=== PATIENT | male | born 1970 | race Caucasian/White ===

== ENCOUNTER 2018-05-30 03:44 | Inpatient (IN) ==
[2018-05-30] MEDS ORDERED: Acetaminophen 325 MG Tablet PO PRN (10:18)
--- NOTE | 2018-05-30 10:49 | P.HPIM ---
History of Present Illness Primary Care Physician: UNKNOWN Chief Complaint: Chest pain History of Present Illness: The patient is a 47-year-old male with past medical history of CAD and hypertension who is presenting to the hospital with chest pain. Patient says yesterday at noon he was sitting down when all of a sudden he developed severe chest pain in the center of his chest. He said that it felt like a giant knot in his chest. He said it comes and goes. There has been some radiation to his left arm. He has had accompanying shortness of breath. He says walking seems to make the pain worse. He reported a severity of 8 out of 10 at its worst. He has not had any sweating associated with the chest pain. He said he was on multiple blood pressure medications but has not been on them for a while because he recently moved here from [place]. He recalls being on metoprolol, losartan and amlodipine. He said he has been having leg swelling so he stopped the amlodipine. He says he has had shortness of breath with exertion for quite some time. He is not able to walk very far before he is fatigued. He states that he is unable to lie flat on his back and try to sleep on his stomach. He does wake up often from deep sleep feeling short of breath. He has had a sleep study but that was unsuccessful because he did not fall asleep in that environment. Diagnosis (1) History of back surgery: Inpatient Certification Inpatient Certification: I certify that the inpatient services were ordered in accordance with Medicare regulations governing the order. This includes certification that hospital inpatient services are reasonable and necessary and in the case of services not specified as inpatient-only under 42 CFR 419.22(n), that they are appropriately provided as inpatient services in accordance to with the 2-midnight benchmark under 43 CFR 412.3(e) Estimated Total Length of Stay (Days): 2 Plans for Post Hospital Care: Home Review of Systems Review of Systems: all other systems reviewed are negative [facility] Medical History Medical History Gout (Acute) CAD (coronary artery disease) (Acute) HTN (hypertension) (Acute) Surgical History Surgical History History of back surgery (Acute) Hx of elbow surgery (Acute) Family History Family History Other CAD (coronary artery disease) Social History Social History Substance History: No History of Abuse Second Hand Smoke Exposure: No Smoking Status: Current every day smoker Tobacco Type: Cigarettes How Often Do You Have a Drink Containing Alcohol: Never Medications and Allergies Allergies Allergy/AdvReac Type Severity Reaction Status Date / Time ibuprofen Allergy Severe Gastrointestinal Verified 05/30/18 03:59 Upset ketorolac Allergy Severe VOMITING Verified 05/30/18 03:59 tramadol Allergy Severe Tachycardia Verified 05/30/18 03:59 NSAIDS Allergy Severe Gastrointestinal Uncoded 05/19/18 14:55 Upset Home Medications Medication Instructions Recorded Confirmed Type No Known Home Medications 05/19/18 05/30/18 History Active Medications: Active Medications Acetaminophen (Tylenol) 650 mg PO Q4H PRN PRN Reason: Temp > 100.4, pain 1-2 Atorvastatin Calcium (Lipitor) 40 mg PO HS ROBERTO Carvedilol (Coreg) 3.125 mg PO BID ROBERTO Lactulose (Lactulose Liq) 30 ml PO DAILY PRN PRN Reason: SEVERE CONSITIPATION Lisinopril (Prinivil) 2.5 mg PO DAILY ROBERTO Morphine Sulfate (Morphine Inj) 4 mg IV.PUSH Q3H PRN PRN Reason: CHEST PAIN Senna/Docusate Sodium (Norma-Colace) 1 tab PO BID ROBERTO Sodium Chloride (Ns Flush) 2 ml IV.FLUSH BID ROBERTO Sodium Chloride (Ns Flush) 2 ml IV.FLUSH PRN PRN PRN Reason: FLUSH AFTER USING IV ACCESS Physical Exam Narrative: General: NAD HEENT: NC, AT Lungs: Scattered rhonchi Cardiac: RRR, no murmurs Abdomen: Soft, NT, ND Extremities: 1-2 + edema Neuro: No gross deficits Caprini VTE Risk Assessment Caprini VTE Risk Assessment: Moderate/High Risk (score >= 2) Caprini Risk Assessment Model: Point Value = 1 Point Value = 2 Point Value = 3 Point Value = 5 Age 41-60 Minor surgery BMI > 25 kg/m2 Swollen legs Varicose veins or History of unexplained or recurrent spontaneous Oral contraceptives or hormone replacement Sepsis (< 1 month) Serious lung disease, including pneumonia (< 1 month) Abnormal pulmonary function Acute myocardial infarction Congestive heart failure (< 1 month) History of inflammatory bowel disease Medical patient at bed rest Age 61-74 Arthroscopic surgery Major open surgery (> 45 min) Laparoscopic surgery (> 45 min) Malignancy Confined to bed (> 72 hours) Immobilizing plaster cast Central venous access Age >= 75 History of VTE Family history of VTE Factor V Leiden Prothrombin [id number] Lupus anticoagulant Anticardiolipin antibodies Elevated serum homocysteine Heparin-induced thrombocytopenia Other congenital or acquired thrombophilia Stroke (< 1 month) Elective arthroplasty Hip, pelvis, or leg fracture Acute spinal cord injury (< 1 month) Prophylaxis Regimen: Total Risk Factor Score Risk Level Prophylaxis Regimen 0-1 Low Early ambulation 2 Moderate Order ONE of the following: *Sequential Compression Device (SCD) *Heparin 5000 units SQ BID 3-4 Higher Order ONE of the following medications: *Heparin 5000 units SQ TID *Enoxaparin/Lovenox 40 mg SQ daily (WT < 150 kg, CrCl > 30 mL/min) *Enoxaparin/Lovenox 30 mg SQ daily (WT < 150 kg, CrCl > 10-29 mL/min) *Enoxaparin/Lovenox 30 mg SQ BID (WT < 150 kg, CrCl > 30 mL/min) AND/OR *Sequential Compression Device (SCD) 5 or more Highest Order ONE of the following medications: *Heparin 5000 units SQ TID (Preferred with Epidurals) *Enoxaparin/Lovenox 40 mg SQ daily (WT < 150 kg, CrCl > 30 mL/min) *Enoxaparin/Lovenox 30 mg SQ daily (WT < 150 kg, CrCl > 10-29 mL/min) *Enoxaparin/Lovenox 30 mg SQ BID (WT < 150 kg, CrCl > 30 mL/min) AND *Sequential Compression Device (SCD) Assessment and Plan (1) History of back surgery: Code(s): Z98.890 - Other specified postprocedural states Status: Acute Plan NSTEMI The patient presented with severe chest pain. EKG without acute ischemia. Troponin has been elevated up to 1.37. He reports having a previous catheterization where some disease was noted but not enough to warrant intervention. He was started on a heparin drip. -Continue heparin drip. -Cardiology has been consulted. -Monitor on telemetry. -Check a lipid profile and hemoglobin A 1C. -Start the patient on low-dose Coreg, lisinopril and atorvastatin. -Trend troponins. -Morphine as needed for chest pain. -Oxygen as needed. GOLDSMITH Chest x-ray and CTA negative for acute process. The patient does have lower extremity edema, concern for cardiomyopathy. -Oxygen as needed. -Cardiology consult pending. -Echocardiogram ordered. Hypertension Exacerbated by chest pain. -Coreg and lisinopril added. -Pain control. -Vasotec as needed. Morbid obesity The patient has not been very active secondary to dyspnea on exertion and chronic back pain. -Lifestyle modifications recommended. PPx: Heparin gtt
[2018-05-30] MEDS: Morphine Inj 4 MG/ML Vial IV.PUSH PRN ×3 (11:37→19:25)
[2018-05-30] MEDS: Lisinopril 5 MG Tablet PO SCH (11:37)
[2018-05-30 11:42] LABS: Activated Partial Thrombo Time 25.3 sec (23.4-31.7); Prothrombin Time 9.8 sec (9.8-11.6)
[2018-05-30 11:49] LABS: Chol/HDL Ratio 6.14 Ratio; HDL Cholesterol 33.5 mg/dL (40.0-60.0)
[2018-05-30 11:56] LABS: Troponin I 2.49 ng/mL (0.02-0.05)
[2018-05-30] MEDS ORDERED: Heparin/NS PF Inj 1,000 ML ONE ×2 (14:56→16:56)
[2018-05-30] MEDS ORDERED: fentaNYL Citrate Inj 100 MCG/2 ML Ampul ONE (14:59)
[2018-05-30] MEDS ORDERED: fentaNYL Citrate Inj 250 MCG/5 ML Ampul ONE (16:57)
[2018-05-30] MEDS ORDERED: Heparin 10,000 UNITS/10 ML Vial (for IV use) ONE (16:59)
--- NOTE | 2018-05-30 17:01 | ECHRPT ---
Indication: CVA/TIA CONCLUSIONS Normal left ventricular size. Wall thickness is normal. The left ventricular systolic function is low normal with an estimated ejection fraction in the rang e of 50- 55%. Aortic valve sclerosis is present. Mild pulmonary valve regurgitation. BP: / HR: Rhythm: MEASUREMENTS (Male / Female) Normal Values Technical Quality:Technically difficult study, Bod y Habitus 2D ECHO LV Diastolic Diameter PLAX 5.0 cm 4.2 - 5.9 / 3.9 - 5.3 cm LV Systolic Diameter PLAX 3.8 cm IVS Diastolic Thickness 1.0 cm 0.6 - 1.0 / 0.6 - 0.9 cm LVPW Diastolic Thickness 0.8 cm 0.6 - 1.0 / 0.6 - 0.9 cm LV Relative Wall Thickness 0.4 RV Internal Dim ED PLAX 1.9 cm LA Systolic Diameter LX 4.2 cm 3.0 - 4.0 / 2.7 - 3.8 cm DOPPLER Mitral E Point Velocity 75.0 cm/s Mitral A Point Velocity 68.6 cm/s Mitral E to A Ratio 1.1 TR Peak Velocity 129.0 cm/s TR Peak Gradient 6.7 mmHg Right Atrial Pressure 10.0 mmHg Pulmonary Artery Systolic Pressu 16.7 mmHg Right Ventricular Systolic Press 16.7 mmHg FINDINGS LEFT VENTRICLE Normal left ventricular size. Wall thickness is normal. The left ventricular systolic function is low normal with an estimated ejection fraction in the rang e of 50- 55%. RIGHT VENTRICLE Normal right ventricular size and systolic function. LEFT ATRIUM The left atrial size is normal. RIGHT ATRIUM The right atrial size is normal. ATRIAL SEPTUM Normal atrial septal thickness without atrial level shunting by limited color doppler interrogation. AORTA The aortic root and proximal ascending aorta are normal in size on limited imaging. MITRAL VALVE Structurally normal mitral valve. No mitral valve stenosis or regurgitation. AORTIC VALVE Aortic valve sclerosis is present. TRICUSPID VALVE Structurally normal tricuspid valve. No tricuspid valve stenosis or regurgitation. PULMONARY VALVE Mild pulmonary valve regurgitation. VESSELS The inferior vena cava is normal in size. PERICARDIUM No pericardial effusion. Evin Lilly MD, FACC, [facility] [place] (Electronically Signed) Final Date:30 May 2018 17:00
[2018-05-30] MEDS ORDERED: Ketamine Inj 500 MG/10 ML Vial ONE (17:04)
[2018-05-30] MEDS ORDERED: Iohexol 350 MG/ML 50 ML Vial (for Cath Lab) IVCONTRAST ONE (17:30)
[2018-05-30] MEDS ORDERED: Iohexol 350 MG/ML 100 ML Vial (for Cath Lab) IVCONTRAST ONE (17:30)
[2018-05-30 17:51] LABS: Hemoglobin A1c 5.5 % (4.3-6.0)
[2018-05-30] MEDS ORDERED: Heparin Drip 25,000 UNIT/250 ML BAG IV.CONT PRN (18:01)
[2018-05-30] MEDS ORDERED: Tirofiban Inj 12,500 MCG/250 ML PLAST..BAG ONE (18:08)
--- NOTE | 2018-05-30 18:27 | CATHPROC ---
[address] HIS Report Study Information Study Number Admission Scheduled Start Study Start [id number] May 30 2018 9:11AM 05/30/2018 May 30 2018 4:56PM [place] Service Cardiac Catheterization Admit Source Facility Department Emergency department [facility] Operator Physician and Clinical Staff Initial Evin Dewey Goodwill Ambassador Koki Torres RN Goodwill Ambassador Swetha Guerrero BSN Other cathlab, cathlab Recorder Han Pierson RCIS(BS) Scrub Alfonso ParhamRT(R) Procedures Performed Procedure Location (Site) Vessel Name Coronary Angiograms LCA Left Coronary Coronary Angiograms RCA Right Coronary Drug Eluting Inflatio RCA Mid Right Coronary L Heart Cath Radiation Dosage Wire insertion Fem Art (right) Femoral Art Wire insertion Radial (right) Radial Art. Equipment Time Outbound Sales Advisor Description Size Mfg Part Number Used/Scraped [id number] 17:54 [employer] INTECC WIRE, [employer] PROWATER 180CM 180CM Used *[id number] TRANSDUCER, TRUWAVE [id number] 16:59 QUINTEROS WELDON * Used W/STOCKCOCK *[id number] 538-476 *[id number] 538-420 *4213535 538-422 *[id number] [id number] *[id number] 538-421 *6170935 538-421 *8405212 538-472 *[id number] 18:09 DAIG/[employer] ANGIOSEAL, FR6 VIP FR 6 Used *[id number] 16:59 TableNOW BLANKET,WARM AIR CCL * Used *[id number] 16:59 TableNOW PACK, CCL CUSTOM * Used *[id number] 16:59 TableNOW SUPPORT, ARTERIAL ADULT 81399 *[id number] Used [id number] 17:57 MED[employer] BALLOON, 2.5 X 10MM EUPHORA 10MM Used *[id number] 18:02 [employer] STENT, 3.0 9 INTEGRITY 3.0 9 Used *[id number] [id number] 17:56 Best Teacher 30 RONALDO INDEFLATOR Used *[id number] BAND, RADIAL COMPRESSION TR [id number] 18:06 [employer] MEDICAL 29CM Used LARGE 29 *[id number] PSI-4F-- 17:47 [employer] MEDICAL SHEATH, FR4.5 PRELUDE 11CM FR 4.5 Used [id number] 17:53 Best Teacher SHEATH, FR6.5 PRELUDE 11CM FR 6.5 038ACT Used *[id number] [id number] 16:59 [employer] MEDICAL WIRE, EXCHANGE 260CM 3MMJ 260CM Used *[id number] 16:59 NAMIC MANIFOLD, 4 PORT * Used *[id number] 16:59 NYCOMED OMNIPAQUE, 350 MG, 150ML 150ML [id number] Used CATHETER, FR5 OPTITORQUE [id number] 17:44 TERUMO MEDICAL FR 5 Used RADIAL TIG 4.0 *[id number] SHEATH, FR6 TRANSRADIAL [id number] 16:59 TERUMO MEDICAL FR 6 Used SLENDER 10CM *[id number] Equipment Model, Serial, Lot Number and Expiration Data Description Model Number Serial Number Lot Number Expiration Date ANGIOSEAL, FR6 VIP [id number] 01-18-2019 STENT, 3.0 9 INTEGRITY [id number] 11-15-2019 History: Current Medications Medication Dosage/Unit Route Frequency Last Date/Time Taken Statins (any) LIPITOR History: Allergies Allergy Reaction ibuprofen Gastrointestinal Upset tramadol Tachycardia ketorolac VOMITING NSAIDS Gastrointestinal Upset History: Risk Factors Family History of Hypertension Dyslipidemia Previous MD Previous Heart Failure Premature CAD Yes Yes Yes No No Prior Valve Prior PCI Prior CABG Surgery No No No Cerebrovascular Peripheral Artery Chronic Lung On Dialysis Diabetes Disease Disease Disease No No No Yes No History: Symptoms/Diagnosis Selection Items Angina-unstable History: Stress Tests Stress or Imaging Studies Performed No History: Other Disease Selection Items HTN History: Other Current Smoker Packs a Day Years Used Pack Years Yes 1 30 30 Labs Hgb (g/dl) 11.60-17.00 Not Drawn Creatinine (mg/dl) 0.50-1.30 Not Drawn INR (PTT:PT) 0.90-1.10 1 Troponin I (ng/ml) CPK-MB (ng/ML) 0.02-0.05 0.50-3.60 2.5 Not Drawn Cholesterol (mg/dl) HDL (mg/dl) 120.00-200.00 40.00-60.00 206 33 Medication Medication Total Dose (Bolus/Oral) Medication Total Dosage/Unit 1% XYLOCAINE 15 mL AGGRASTAT BOLUS 75 mL (IV) HEPARIN 8000 units RADIAL COCKTAIL 5 mL (Bolus) Medications (Bolus/Oral) Medication Time Given Dosage/Unit Administered By Reason 1% XYLOCAINE 05/30/2018 5:25:38 PM 5 mL Evin Lilly 5 mL 1% XYLOCAINE given in lab by Evin Lilly in Right Radial via Subcutaneous. Ordered by Evin Jefferson. Ntg 200mcg Verapamil 2.5mg Heparin RADIAL COCKTAIL 05/30/2018 5:27:28 PM 5 mL (Bolus) Evin Lilly 2000U 5 mL (Bolus) RADIAL COCKTAIL given in lab by Evin Lilly in Right Radial via Radial. Using [Solu tion Name]. Ordered by Evin Lilly. Reason: Ntg 200mcg Verapamil 2.5mg Heparin 2500U. 1% XYLOCAINE 05/30/2018 5:47:13 PM 10 mL Evin Lilly 10 mL 1% XYLOCAINE given in lab by Evin Lilly in Right Groin via Subcutaneous. Ordered by Evin Jefferson. HEPARIN 05/30/2018 5:55:00 PM 8000 units Swetha Guerrero 8000 units HEPARIN given in lab by Swetha Guerrero BSN in Right Antecubital via Peripheral IV. O rdered by Evin Lilly. AGGRASTAT BOLUS 05/30/2018 6:21:00 PM 75 mL (IV) Swetha Guerrero AGGRASTAT BOLUS given in lab by Swetha Guerrero BSN in Right Antecubital via Peripheral IV. Pump /Drip Flow = 55573.5 ml/hr using [Solution Name]. Ordered by Evin Lilly. Medication (Drip) Medication Time Given Dosage/Unit Concentration/Unit Diluent (ml) Solution AGGRASTAT DRIP 05/30/2018 6:26:00 PM 27 mL/hr 12.5 mL 250 NaCl .9 27 mL/hr AGGRASTAT DRIP given in lab by Swetha Guerrero BSN in Right Antecubital via Peripheral IV. Pump/Drip Flow = 540 ml/hr using NaCl .9 with a concentration of 12.5 mL in 250 ml. Ordered by Evin Lilly. IV Solutions 05/30/2018 4:59:32 PM 50 mL (IV) NaCl .9 Patient arrived on IV Solutions via Peripheral IV. Pump/Drip Flow using NaCl .9. Initial Case Assessment Cardiovascular HR NIBP 82 129/75 Edema Present Skin color Skin None Normal Warm Dry Circulatory - Right Pulses Dorsalis Pedis Femoral Radial 2 2 2 Scale (0,1,2,3,4,d) Circulatory - Left Pulses Dorsalis Pedis Femoral Radial 2 2 Scale (0,1,2,3,4,d) Neurological State Oriented to time-place- Alert Moves all extremities person Respiration - General Respiration Rate SpO2 (%) O2 (lpm) (B/min) 14 98 10 Final Case Assessment Cardiovascular HR NIBP 88 136/77 Edema Present Skin color Skin None Normal Warm Dry Circulatory - Right Pulses Dorsalis Pedis Femoral Radial 2 2 2 Scale (0,1,2,3,4,d) Circulatory - Left Pulses Dorsalis Pedis Femoral Radial 2 2 Scale (0,1,2,3,4,d) Neurological State Oriented to time-place- Alert Moves all extremities person Respiration - General Respiration Rate SpO2 (%) O2 (lpm) (B/min) 20 100 10 Chronological Log Time Study Chronological Log 16:52:19 Patient arrived via Bed. 16:52:24 Patient Name, D.O.B, / Armband Verified By R.N. 16:52:26 Consent signed by the physician and the patient and verified by the [facility] Operator staff. 16:52:28 Pre-op and post- op instructions given; patient acknowledges understanding of instructions. 16:57:31 Anesthesia at bedside. Assumes care of patient. 16:57:34 Allens test performed on the right radial and ulnar artery.POSITIVE. 16:57:43 Immediate Presedation assesment performed by physician. 16:57:44 Patient has been NPO for More than 6Hrs. 16:57:44 Skin Breakdown- none per patient 16:59:08 Patient Warmer Placed on the Table. 16:59:09 Gregory Prominences Protected 16:59:10 A # 20 IV was noted in the Forearm (right). Grade = 0 16:59:31 A # 20 IV was noted in the Antecubital (left). Grade = 0 16:59:32 Patient arrived on IV Solutions via Peripheral IV. Pump/Drip Flow using NaCl .9. Vitals capture started with the following parameters, Patient=Adult, Interval=5 min, Initial Pr oughnz=432 mmHg, 17:02:00 Deflation Rate=5 mmHg, Cuff placed on Right Arm 17:03:12 HR=80 bpm, DUEE=489/75 mmhg, SpO2=96.0 %, Resp=15 B/min, Pain=0, Katty=10, Kirk=2 17:05:50 History and physical on the chart or being dictated. 17:05:57 Reference ECG taken Assessment: Initial Case, HR=82 BPM, HCIJ=974/75 mmhg, Edema=None, Color=Normal, Skin = Warm, D ry Right Pulses: Pranav Ped=2, Femoral=2, Radial=2 17:06:00 Left Pulses: Pranav Ped=2, Femoral=2 Neurological: State=Alert, Ox3, JULES Respiration: Resp=14 B/min, SpO2=98 %, O2=10 lpm 17:07:38 HR=78 bpm, NQUU=644/69 mmhg, SpO2=96.0 %, Resp=11 B/min, Pain=0, Katty=10, Kirk=2 17:07:53 Right Radial and groin prepped with 2% chlorhexidine, and draped after a 3 min. waiting charito e. 17:11:25 See NIGHT AUDITOR chart for meds 17:11:44 MD paged 17:12:37 HR=80 bpm, ISHG=953/68 mmhg, SpO2=94.0 %, Resp=13 B/min, Pain=0, Katty=10, Kirk=2 17:15:20 Pressure channel 1 zeroed. 17:18:23 HR=86 bpm, YJYT=819/69 mmhg, SpO2=96.0 %, Resp=9 B/min, Pain=0, Katty=10, Kirk=2 17:20:25 MD notified again 17:20:51 MD responded 17:23:00 MD arrived. 17:23:08 HR=93 bpm, RHQD=549/98 mmhg, SpO2=96.0 %, Resp=15 B/min, Pain=0, Katty=10, Kirk=2 Time Out. Correct patient, correct procedure, correct physician, labs, allergies, and equipment verified with quality assurance lab technician 17:25:16 team present. Fire risk assesment completed (see hard stop sheet for coding). Time Out Conc urred by MD and individual staff in procedure. 17:25:37 Case Start 17:25:38 5 mL 1% XYLOCAINE given in lab by Evin Lilly in Right Radial via Subcutaneous. Ordere d by Evin Lilly. A SHEATH, FR6 TRANSRADIAL SLENDER 10CM FR 6 was advanced into the Radial (right) using the Perc utaneous 17:26:10 technique. 17:26:20 Access site was Right Radial Artery . 5 mL (Bolus) RADIAL COCKTAIL given in lab by Evin Lilly in Right Radial via Radial. Using [Solution Name]. 17:27:28 Ordered by Evin Lilly. Reason: Ntg 200mcg Verapamil 2.5mg Heparin 2500U. 17:27:39 HR=94 bpm, SQGI=230/101 mmhg, SpO2=96.0 %, Resp=15 B/min 17:27:39 A WIRE, EXCHANGE 260CM 3MMJ 260CM was inserted via Radial (right). A JR 4.0 INFINITI CATHETER FR 4 was advanced over a wire. OMNIPAQUE, 350 MG, 150ML 150ML was us ed for 17:27:49 injections. 17:27:57 Wire removed Recorded Pressure: LV, Ao, HR=97, Condition=Condition 1 17:29:36 (Left Ventricle) LV 145/12/27, (Aorta) Ao 107/47/89 Recorded Pressure: LV, ZL=102, Condition=Condition 1 17:29:50 (Left Ventricle) LV 135/27/32 17:31:44 The RCA was injected and visualized at various angles. OMNIPAQUE, 350 MG, 150ML 150ML used . After removing the current catheter a JL 4.0 INFINITI CATHETER FR 4 was advanced over a WIRE, E XCHANGE 260CM 17:32:09 3MMJ 260CM. 17:33:35 IB=689 bpm, SIPV=353/87 mmhg, MhM1=543 %, Resp=18 B/min, Pain=0, Katty=10, Kirk=2 17:37:45 IU=688 bpm, NIBP=97/58 mmhg, LiB6=993.0 %, Resp=14 B/min, Pain=0, Katty=10, Kirk=2 17:38:05 Catheter was removed A JR 4.0 INFINITI CATHETER FR 4 was advanced over a wire. OMNIPAQUE, 350 MG, 150ML 150ML was us ed for 17:38:06 injections. 17:38:47 NIBP STAT measurement started. 17:39:19 HR=96 bpm, TJYC=645/65 mmhg, BeL1=132.0 %, Resp=14 B/min, Pain=0, Katty=10, Kirk=2 After removing the current catheter a 3DRC INFINITI CATHETER FR 4 was advanced over a WIRE, EXC HANGE 260CM 17:40:01 3MMJ 260CM. 17:42:14 After removing the current catheter a LCB INFINITI FR 4 was advanced over a WIRE, EXCHANGE 260CM 3MMJ 260CM. 17:42:40 SF=610 bpm, NIBP=91/48 mmhg, TgR4=425.0 %, Resp=14 B/min, Pain=0, Katty=10, Kirk=2 17:43:51 Wire removed 17:44:21 A WIRE, EXCHANGE 260CM 3MMJ 260CM was inserted via Radial (right). 17:44:47 Catheter was removed A CATHETER, FR5 OPTITORQUE RADIAL TIG 4.0 FR 5 was advanced over a wire. OMNIPAQUE, 350 MG, 150 ML 150ML 17:44:49 was used for injections. 17:45:58 Catheter was removed 17:46:01 Wire removed 17:46:43 Converting to R femoral 10 mL 1% XYLOCAINE given in lab by Evin Lilly in Right Groin via Subcutaneous. Ordered by Vijaya, 17:47:13 Evin. 17:47:39 HR=79 bpm, NIBP=83/47 mmhg, VtX5=890.0 %, Resp=16 B/min, Pain=0, Katty=10, Kirk=2 17:47:53 Access site was Right Femoral Artery. 17:47:58 A SHEATH, FR4.5 PRELUDE 11CM FR 4.5 was advanced into the Fem Art (right) using the Percuta neous technique. A JL 5.0 INFINITI CATHETER FR 4 was advanced over a wire. OMNIPAQUE, 350 MG, 150ML 150ML was us ed for 17:48:11 injections. 17:49:21 The LCA was injected and visualized at various angles. OMNIPAQUE, 350 MG, 150ML 150ML used . Recorded Pressure: Ao, HR=84, Condition=Condition 1 17:51:41 (Aorta) Ao 78/53/64 After removing the current catheter a JL 4.0 INFINITI CATHETER FR 4 was advanced over a WIRE, E XCHANGE 260CM 17:52:52 3MMJ 260CM. 17:53:11 HR=93 bpm, FNOM=044/55 mmhg, LgP5=252.0 %, Resp=24 B/min, Pain=0, Katty=10, Kirk=2 A SHEATH, FR6.5 PRELUDE 11CM FR 6.5 was exchanged in the Fem Art (right). This was necessary in order to 17:54:39 accomodate a larger catheter. 8000 units HEPARIN given in lab by Swetha Guerrero BSN in Right Antecubital via Peripheral IV. Ordered by 17:55:00 Evin Lilly. A JR 4.0 GUIDE CATHETER FR 6 was advanced over a wire. OMNIPAQUE, 350 MG, 150ML 150ML was used for 17:56:44 injections. 17:57:43 HR=94 bpm, LKAA=499/47 mmhg, ZnL6=272.0 %, Resp=14 B/min, Pain=0, Katty=10, Kirk=2 17:58:37 A WIRE, ASAHI PROWATER 180CM 180CM was inserted via Fem Art (right). 17:59:51 Interventional wire has crossed the lesion A BALLOON, 2.5 X 10MM EUPHORA 10MM was inserted over WIRE, ASAHI PROWATER 180CM 180CM via the F em Art 17:59:57 (right). 18:00:00 Activated Clotting Time Drawn 18:01:24 Balloon Removed. A STENT, 3.0 9 INTEGRITY 3.0 9 was advanced through a JR 4.0 GUIDE CATHETER FR 6 over a WIRE, A PEDRO 18:02:06 PROWATER 180CM 180CM. 18:02:38 HR=85 bpm, OKMO=037/46 mmhg, BqC2=765.0 %, Resp=17 B/min, Pain=0, Katty=10, Kirk=2 A STENT, 3.0 9 INTEGRITY 3.0 9 was deployed using a 30 RONALDO INDEFLATOR at 16 atmospheres for 12 seconds in the 18:04:45 RCA Mid. 18:05:47 Delivery device removed 18:06:37 Catheter was removed 18:06:47 Case End (Physician broke scrub) 18:06:55 Catheter(s) removed without difficulty 18:07:45 HR=87 bpm, KBNS=288/31 mmhg, YcJ8=836.0 %, Resp=21 B/min, Pain=0, Katty=10, Kirk=2 18:08:32 An injection in the Fem Art (right) was made through the SHEATH, FR6.5 PRELUDE 11CM FR 6.5. 18:09:00 PACU called. Spoke to Monika 18:10:09 NIBP STAT measurement started. 18:10:43 HR=84 bpm, NIBP=86/66 mmhg, OzY3=277.0 %, Resp=25 B/min Radial Compression Device Used. 15 mLs of air placed in BAND, RADIAL COMPRESSION TR LARGE 29 2 9CM. Affected 18:11:29 hand 98 % O2 saturation. 18:11:34 Implantable Device card placed in patient's chart. 18:11:43 ANGIOSEAL, FR6 VIP FR 6 placement in the Fem Art (right) 18:11:57 ACT (Normal Range 90-180) = 253 18:13:04 mGy is equal to or greater than 2000 mGy due to: Body Habitus and Complex Procedure 18:13:10 No case complications noted. 18:13:11 HR=90 bpm, UOUR=396/77 mmhg, VsW3=783.0 %, Resp=12 B/min, Pain=0, Katty=10, Kirk=2 18:13:11 Cine recording checked. 18:13:13 Bedside Report will be given. 18:13:38 A Left Heart Cath was performed. Assessment: Final Case, HR=88 BPM, RUAF=328/77 mmhg, Edema=None, Color=Normal, Skin = Warm, Dr y Right Pulses: Pranav Ped=2, Femoral=2, Radial=2 18:16:16 Left Pulses: Pranav Ped=2, Femoral=2 Neurological: State=Alert, Ox3, JULES Respiration: Resp=20 B/min, AqT9=692 %, O2=10 lpm 18:17:39 HR=83 bpm, NIBP=98/48 mmhg, GwG5=558.0 %, Resp=17 B/min, Pain=0, Katty=10, Kirk=2 AGGRASTAT BOLUS given in lab by Swetha Guerrero BSN in Right Antecubital via Peripheral I V. Pump/Drip Flow = 18:21:00 52686.5 ml/hr using [Solution Name]. Ordered by Evin Lilly. 27 mL/hr AGGRASTAT DRIP given in lab by Swetha Guerrero BSN in Right Antecubital via Norma pheral IV. 18:26:00 Pump/Drip Flow = 540 ml/hr using NaCl .9 with a concentration of 12.5 mL in 250 ml. Ordered by Evin Lilly. 18:27:00 Patient moved to [facility] End Study - Contrast Media Used In Study Contrast Total Opened (mL) Total Used (mL) Total Wasted (mL) Omnipaque 120 120 0 End Study - Radiation Exposure Fluoro Time Fluoro Dose (mGy) Cine Dose (uGym2) (minutes) 16.0 9925 28254 End Study - Patient Disposition Complications Transferred To Interventional Outcome No Critical Care Bed successful
[2018-05-30] MEDS ORDERED: Misc Info for Pharmacy OTHER STA (18:29)
--- NOTE | 2018-05-30 18:45 | MB ---
cc: Evin Lilly MD DATE: 05/30/2018 HISTORY OF PRESENT ILLNESS: Mr. Jett is a very pleasant 47-year-old gentleman with history of coronary artery disease, gout, hypertension, back and elbow surgery went to [facility] complaining of chest pain. Initial troponin was elevated. The troponins have continued to elevate. The patient has 6/10 chest pain. He does smoke. I attempted to do an urgent left heart catheterization. The patient adamantly refused to have a left heart catheterization, even with conscious sedation. I explained to him that we would rule out a life threatening coronary artery stenosis with left heart catheterization. The patient understood and still refused catheterization. I then discussed the option of elective intubation with anesthesia. I discussed the case also with Anesthesia, and they are very reluctant to do elective intubation and ultimately advised use of propofol with Bactrim intubation if necessary. The patient otherwise denies any fever, chills, cough, GI or bleeding, PND, orthopnea, syncope, or dizziness. PAST MEDICAL HISTORY: As per history of present illness. ALLERGIES: 1. IBUPROFEN. 2. KETOROLAC. 3. TRAMADOL. 4. NSAIDS. SOCIAL HISTORY: The patient smokes every day. Drinks alcohol 3-4 times a month. MEDICATIONS: In the hospital: 1. Coreg 3.125 b.i.d. 2. Lipitor 40 mg at bedtime. 3. Lisinopril 2.5 mg daily. 4. The patient also received IV heparin bolus and drip. There is no documentation of aspirin at [facility]; however, the patient was previously at [facility]. PHYSICAL EXAMINATION: VITAL SIGNS: Pulse 75, respiratory rate 19. There are no charted blood pressures or temperatures on the chart. GENERAL: He is alert, oriented x 3, in no acute distress. NECK: Supple. No JVD. No bruit. CARDIOVASCULAR: S1, S2. No murmurs, rubs, gallops. LUNGS: Clear to auscultation bilaterally. ABDOMEN: Soft, nontender, nondistended with positive bowel sounds. EXTREMITIES: No lower extremity edema. ABDOMEN: Soft, nontender, nondistended. Positive bowel sounds. LABORATORY DATA: He had a 2-D echo done, which was EF of 50-55%. Aortic valve sclerosis. There is no TR to estimate PA systolic pressure. Chest CTA: No pulmonary emboli, prior granulomatous disease, bilateral nonobstructing renal calculi personally visualized. Chest x-ray: Lungs are clear. EKG shows normal sinus rhythm, QRS duration of 110 milliseconds. Small Q-waves in the inferior leads, which are nondiagnostic. Venous Doppler study is negative for bilateral lower extremity deep venous thrombosis. LABORATORY DATA: INR 1.0. One troponin was done, it is 2.49. LDL was 141. Sodium 142, potassium 4.1, chloride 110, BUN 20, creatinine 1.20. LFTs are normal. LDL is 141. White count 10.3, hemoglobin 13.9, hematocrit 42.8, platelet count is 321. DIAGNOSES: 1. Ffd-MC-xxourprhm myocardial infarction. 2. Tobacco abuse. 3. Hyperlipidemia. 4. Morbid obesity. DISCUSSION: As discussed in the history of present illness, the patient adamantly refused left heart catheterization with conscious sedation, despite understanding that he was high risk for life-threatening coronary stenosis. When I discussed with him the option of doing elective intubation, the patient was agreeable to that. Anesthesia was not agreeable to do elective intubation and preferred sedation with propofol with backup intubation, if necessary. Therefore, the plan is to proceed with catheterization through right radial approach with propofol and intubation if necessary. The patient is agreeable. Anesthesia is discussing whether the patient is agreeable to this option. Otherwise, the patient will continue with heparin drip. Strongly advised him to stop smoking. Continue Lipitor 40. Will also add aspirin 81 mg daily. MD LORNE Carroll/alonso , 05:17 PM , 05:30 PM
[2018-05-30] MEDS ORDERED: Tirofiban Inj 12,500 MCG/250 ML PLAST..BAG IV.CONT SCH (19:00)
[2018-05-30] MEDS ORDERED: TIROFIBAN BOLUS IV.SIG ONE (19:30)
--- NOTE | 2018-05-30 21:01 | MR ---
cc: Evin Lilly MD DATE: 05/30/2018 PROCEDURE: Left heart catheterization, left ventriculography, coronary angiography, direct PCI of bare metal stent of the mid right coronary artery. INDICATIONS FOR PROCEDURE: Non-STEMI, coronary artery disease. DESCRIPTION: The patient was brought to the cardiac catheterization laboratory. Note, the patient had refused conscious sedation. Anesthesia did not feel comfortable electively intubating the patient. Therefore, Anesthesia used Versed, fentanyl and ketamine, which the patient was agreeable to. The right radial artery was prepped and draped in usual sterile fashion. Access was obtained. A solution of 2500 units of heparin, 200 mcg of nitroglycerin and 2.5 mg of was infused in the right radial artery. I was able to image the left ventricle. LV pressures were 145/17-20, EF was approximately 55%. The right coronary was dominant. It was occluded in the proximal mid segment. Note: The patient was under-sedated, his arm was not secured, and he moved his arm and, with great difficulty, I was able to maintain the sheath in place and the catheter in place. We lost the wire position in the ascending aorta. I had to break scrub as the patient broke the sterile field. I was not able to get back into the ascending aorta despite using a TIG catheter, using a JR4 or 3DRC. Therefore, we had to switch to the right groin. Right femoral artery access was obtained. I then used a JL5 and a JL4 catheter to image the left main coronary artery, LAD and circumflex. The left main coronary artery had no significant disease angiographically. The left circumflex vessel had no significant disease angiographically. The first obtuse marginal vessel had a high takeoff 3.0 mm vessel, with no obvious stenosis. Second obtuse marginal vessel, medium size vessel 2.5-2.75 mm, with no significant disease angiographically. Third obtuse marginal vessel, medium size vessel with [id number] disease in the proximal segment up to 30-40% angiographically. The LAD had no significant disease in the proximal mid segment, the LAD tapered from a 4.0 mm vessel within 20 mm to a 2.5 mm vessel. There is focal stenosis up to about 50% angiographically. LAD was transapical. There were faint collaterals to a very small right PDA at the crux of the heart. I then changed the 4-[place] Citizen sheath to the 6-[place] Citizen sheath in the right femoral artery. 50 units mL/kg of heparin was given. ACT was 253. A 6-[place] Citizen JR4 guide and a 0.014 Ford guidewire was used to attempt to cross the proximal mid RCA; however, I was not able to do this. I used a Q510 4-0 balloon for wire support and was able to cross the lesion. This resulted in reestablishment of flow to the entire distal right coronary artery, right PDA and right VIRIDIANA. There was a residual 95% stenosis. I placed a 3.09 Integrity stent with inflation of 16 atmospheres for 20 seconds. Stenosis went from 100% to 0% with HERBER 3 flow. There was severe spasm in the distal RCA; however, the patient's pressures with heavy sedation were in the 60s and, therefore, I did not give nitroglycerin. CONCLUSION: 1. Nxs-TB-ptvgyygig myocardial infarction with the culprit occluded proximal mid right coronary artery. 2. A 50% mid LAD lesion as detailed above. 3. Grade 1 left to right collaterals to a small segment of the proximal right posterior descending artery. 4. Normal left ventricular systolic function at discharge, 55%. 5. Successful percutaneous coronary intervention bare metal stent of the proximal to mid right coronary artery from 100% with HERBER 0 flow to 0% with HERBER 3 flow. Note that this is a very difficult case due to the patient's very large body mass index and difficulty imaging, as well as difficulty in sedating the patient in between full intubation and not being sedated enough, resulting in the patient breaking the sterile field and almost losing the sheath in the right radial artery, and then losing the wire position in the ascending aorta as detailed above, resulting in having to change to the right femoral artery access. 6. Recommend aspirin 162 mg daily. 7. Plavix 600 mg p.o. load then 75 mg daily for a total of 15 months. 8. Aggrastat drip per protocol. 9. We will treat lipids per NCEP guidelines, and treat with Coreg and KEISHA inhibitor as hemodynamically tolerated. MD LORNE Carroll/alonso/tl , 06:18 PM , 06:32 PM
[2018-05-30] MEDS ORDERED: Morphine Sulfate Inj 8 MG/ML Vial IV.PUSH ONE (21:14)
[2018-05-30] MEDS: Senna/Docusate Sodium 8.6/50 MG Tablet PO SCH (21:32)
[2018-05-31] MEDS: Morphine Inj 4 MG/ML Vial IV.PUSH PRN ×6 (00:33→21:53)
[2018-05-31 05:36] LABS: Baso % (Auto) 0.5 % (0.0-2.0); Eos # (Auto) 0.3 th/mm3 (0.0-0.4); Eos % (Auto) 2.8 % (0.0-4.0); Hemoglobin 12.6 gm/dL (13.0-17.0); Lymph # (Auto) 2.1 th/mm3 (1.0-4.8); Lymph % (Auto) 22.7 % (9.0-44.0); Mean Corpuscular HGB Conc 33.1 % (32.0-36.0); Mean Corpuscular Volume 84.6 fL (80.0-100.0); Mean Platelet Volume 7.2 fL (7.0-11.0); Mono # (Auto) 0.8 th/mm3 (0.0-0.9); Mono % (Auto) 8.8 % (0.0-8.0); Neut # (Auto) 5.9 th/mm3 (1.8-7.7); Neut % (Auto) 65.2 % (16.0-70.0); Platelet Count 287 th/mm3 (150-450); Red Cell Distribution Width 18.8 % (11.6-17.2)
[2018-05-31 05:57] LABS: Albumin 3.3 g/dL (3.4-5.0); Anion Gap 10 meq/L (5-15); Aspartate Aminotransferase 98 U/L (15-37); Blood Urea Nitrogen 19 mg/dL (7-18); Calcium 8.2 mg/dL (8.5-10.1); Carbon Dioxide 22.6 meq/L (21.0-32.0); Chloride 108 meq/L (98-107); Glomerular Filtration Rate 76 mL/min (>89); Glucose,Random 90 mg/dL (74-106); Magnesium 2.1 mg/dL (1.5-2.5); Potassium 3.9 meq/L (3.5-5.1); Sodium 141 meq/L (136-145)
[2018-05-31 05:59] LABS: Alanine Aminotransferase 34 U/L (12-78); Cholesterol 188 mg/dL (120-200); Triglycerides 246 mg/dL (42-150)
[2018-05-31 06:01] LABS: Alkaline Phosphatase 123 U/L (45-117); Chol/HDL Ratio 7.04 Ratio; Creatine Kinase 828 U/L (39-308); HDL Cholesterol 26.7 mg/dL (40.0-60.0); LDL Cholesterol,Calculated 112 mg/dL (0-99); Total Protein 6.7 g/dL (6.4-8.2)
[2018-05-31 06:22] LABS: CKMB Percent 11.8 % (0.0-4.0)
[2018-05-31] MEDS: Lisinopril 5 MG Tablet PO SCH (08:42)
--- NOTE | 2018-05-31 09:38 | P.PNIM ---
Subjective Interval history: The patient was resting in bed. He was complaining of severe back pain. He said he has chronic back pain. He would like to go home today if possible. He denies any further chest pain. He said he will try to quit smoking cigarettes. Discussed with nursing at the bedside. Physical Exam Vital signs: Vital Signs 05/30/18 10:15 05/30/18 11:38 05/30/18 12:00 Temperature Pulse Rate 75 76 Respiratory Rate 19 Blood Pressure Pulse Oximetry 05/30/18 14:42 05/30/18 16:10 05/30/18 18:35 Temperature 97.7 F Pulse Rate 76 95 H Respiratory Rate 20 15 Blood Pressure 116/59 L Pulse Oximetry 100 05/30/18 18:40 05/30/18 18:45 05/30/18 19:00 Temperature 97.8 F Pulse Rate 88 90 86 Respiratory Rate 16 21 16 Blood Pressure 119/65 120/65 122/69 Pulse Oximetry 100 98 98 05/30/18 19:31 05/30/18 20:00 05/30/18 21:00 Temperature 97.4 F L Pulse Rate 86 84 Respiratory Rate 18 17 Blood Pressure 137/82 Pulse Oximetry 100 05/30/18 21:40 05/30/18 22:00 05/30/18 23:00 Temperature Pulse Rate 84 93 H Respiratory Rate 18 Blood Pressure Pulse Oximetry 05/31/18 00:00 05/31/18 01:00 05/31/18 02:00 Temperature 97.8 F Pulse Rate 91 H 61 74 Respiratory Rate 16 Blood Pressure 136/83 Pulse Oximetry 97 05/31/18 03:00 05/31/18 03:25 05/31/18 04:00 Temperature 98 F Pulse Rate 93 H 94 H Respiratory Rate 19 18 Blood Pressure 120/61 Pulse Oximetry 94 L 05/31/18 05:00 05/31/18 06:00 05/31/18 07:00 Temperature Pulse Rate 82 71 82 Respiratory Rate Blood Pressure Pulse Oximetry 05/31/18 08:00 Temperature 98.1 F Pulse Rate 82 Respiratory Rate 20 Blood Pressure 136/69 Pulse Oximetry 97 Intake & Output 05/30/18 05/31/18 05/31/18 18:59 06:59 18:59 Intake Total 730 / 730 Output Total 1500 / 1500 Balance -770 / -770 Weight 165 kg 161 kg Intake: IV 250 / 250 Aggrastat Inj 12,500 mcg In 250 250 / 250 ml @ 0 mls/hr .ROUTE .[employer] [facility] Rx#:[id number] Oral 480 / 480 Output: Urine 1500 / 1500 Other: Weight On Admission 165 kg Narrative: General: NAD HEENT: NC, AT Lungs: CTAB Cardiac: RRR, no murmurs Abdomen: Soft, NT, ND Extremities: 1-2 + edema. Right groin site without hematoma, bandage in place Neuro: No gross deficits Results Labs CBC & Chem 7: 05/31/18 04:27 05/31/18 04:27 Assessment and Plan (1) History of back surgery: Code(s): Z98.890 - Other specified postprocedural states Status: Acute Plan NSTEMI The patient presented with severe chest pain. EKG without acute ischemia. Troponin has been elevated up to 1.37. He reports having a previous catheterization where some disease was noted but not enough to warrant intervention. S/p heparin drip. Cardiology consult appreciated. S/p cath 05/30: Normal left ventricular systolic function at 55%; a 50% mid LAD lesion; Successful percutaneous coronary intervention bare metal stent of the proximal to mid right coronary artery. LDL elevated. A1c WNL. -Monitor on telemetry. -continue ASA, Plavix, Coreg, lisinopril and atorvastatin. -follow up with cardiology. GOLDSMITH Chest x-ray and CTA negative for acute process. The patient does have lower extremity edema. Echo with EF 50-55%. Likely s/t above. Satting well on room air. -management as above. -outpt follow-up. Hypertension Exacerbated by chest pain. Improved on current regimen. -Coreg and lisinopril. -Pain control. -Vasotec as needed. Morbid obesity The patient has not been very active secondary to dyspnea on exertion and chronic back pain. -Lifestyle modifications recommended. Tobacco abuse The pt continues to smoke. -cessation instruction. PPx: S/p heparin gtt Discharge Planning: D/c when cleared by cardiology Progress Note: Quality VTE Deep Vein Thrombosis/Pulmonary Embolism Present on Admission: No
[2018-05-31] MEDS: Senna/Docusate Sodium 8.6/50 MG Tablet PO SCH ×2 (10:45→20:37)
--- NOTE | 2018-05-31 14:24 | ECG ---
Date Performed: 05/31/2018 Time Performed: 05:36:48 PTAGE: 47 years EKG: Sinus rhythm . There is subtle inferior ST elevation which could represent an ST elevation [place]. Clinical correlati on suggested. PREVIOUS TRACING : 02/22/2012 19.29 DOCTOR: Mark Kingston Interpretating Date/Time 05/31/2018 14:22:41
--- NOTE | 2018-05-31 19:29 | P.PNCA ---
Subjective Interval history: states he is no longer having chest pain or dyspnea, feels better Medications and Allergies Active Medications: Active Medications Acetaminophen (Tylenol) 650 mg PO Q4H PRN PRN Reason: Temp > 100.4, pain 1-2 Aspirin (Aspirin Chew) 162 mg PO DAILY [facility] Last Admin: 05/31/18 08:42 Dose: 162 mg Atorvastatin Calcium (Lipitor) 40 mg PO HS [facility] Last Admin: 05/30/18 21:32 Dose: 40 mg Carvedilol (Coreg) 3.125 mg PO BID [facility] Last Admin: 05/31/18 08:42 Dose: 3.125 mg Clopidogrel Bisulfate (Plavix) 75 mg PO DAILY [facility] Last Admin: 05/31/18 08:42 Dose: 75 mg Tirofiban/Sodium Chloride (Aggrastat Inj) 12,500 mcg in 250 mls @ 0 mls/hr IV.CONT .Q0M [facility]; Protocol Lactulose (Lactulose Liq) 30 ml PO DAILY PRN PRN Reason: SEVERE CONSITIPATION Lisinopril (Prinivil) 2.5 mg PO DAILY [facility] Last Admin: 05/31/18 08:42 Dose: 2.5 mg Miscellaneous Information ([facility] [place] [facility] Information) 1 each OTHER UNSCH PRN PRN Reason: SEE LABEL COMMENTS Stop: 05/31/18 20:04 Morphine Sulfate (Morphine Inj) 4 mg IV.PUSH Q3H PRN PRN Reason: CHEST PAIN Last Admin: 05/31/18 18:22 Dose: 4 mg Oxycodone/Acetaminophen (Percocet 5/325 Mg) 1 tab PO Q6H PRN PRN Reason: pain 3-10 Last Admin: 05/31/18 12:09 Dose: 1 tab Senna/Docusate Sodium (Norma-Colace) 1 tab PO BID [facility] Last Admin: 05/31/18 10:45 Dose: Not Given Sodium Chloride (Ns Flush) 2 ml IV.FLUSH PRN PRN PRN Reason: FLUSH AFTER USING IV ACCESS Sodium Chloride (Ns Flush) 2 ml IV.FLUSH BID [facility] Last Admin: 05/31/18 10:46 Dose: 2 ml Allergies Allergy/AdvReac Type Severity Reaction Status Date / Time ibuprofen Allergy Severe Gastrointestinal Verified 05/30/18 03:59 Upset ketorolac Allergy Severe VOMITING Verified 05/30/18 03:59 tramadol Allergy Severe Tachycardia Verified 05/30/18 03:59 NSAIDS Allergy Severe Gastrointestinal Uncoded 05/19/18 14:55 Upset Home Medications Medication Instructions Recorded Confirmed Type No Known Home Medications 05/19/18 05/30/18 History Physical Exam Vital signs: Vital Signs 05/30/18 19:31 05/30/18 20:00 05/30/18 21:00 Temperature 97.4 F L Pulse Rate 86 84 Respiratory Rate 18 17 Blood Pressure 137/82 Pulse Oximetry 100 05/30/18 21:40 05/30/18 22:00 05/30/18 23:00 Temperature Pulse Rate 84 93 H Respiratory Rate 18 Blood Pressure Pulse Oximetry 05/31/18 00:00 05/31/18 01:00 05/31/18 02:00 Temperature 97.8 F Pulse Rate 91 H 61 74 Respiratory Rate 16 Blood Pressure 136/83 Pulse Oximetry 97 05/31/18 03:00 05/31/18 03:25 05/31/18 04:00 Temperature 98 F Pulse Rate 93 H 94 H Respiratory Rate 19 18 Blood Pressure 120/61 Pulse Oximetry 94 L 05/31/18 05:00 05/31/18 06:00 05/31/18 07:00 Temperature Pulse Rate 82 71 82 Respiratory Rate Blood Pressure Pulse Oximetry 05/31/18 08:00 05/31/18 09:00 05/31/18 10:00 Temperature 98.1 F Pulse Rate 82 80 88 Respiratory Rate 20 20 Blood Pressure 136/69 Pulse Oximetry 97 05/31/18 10:05 05/31/18 11:00 05/31/18 12:00 Temperature Pulse Rate 76 80 Respiratory Rate 20 Blood Pressure 127/67 Pulse Oximetry 97 99 05/31/18 13:00 05/31/18 13:40 05/31/18 14:15 Temperature 98.2 F Pulse Rate 92 H 91 H Respiratory Rate 20 21 17 Blood Pressure 120/86 Pulse Oximetry 98 05/31/18 15:06 Temperature 98.2 F Pulse Rate 90 Respiratory Rate 19 Blood Pressure 136/95 H Pulse Oximetry 98 Intake & Output 05/31/18 05/31/18 06/01/18 06:59 18:59 06:59 Intake Total 730 / 730 Output Total 1500 / 1500 Balance -770 / -770 Weight 161 kg Intake: IV 250 / 250 Aggrastat Inj 12,500 mcg In 250 250 / 250 ml @ 0 mls/hr .ROUTE .[facility] Rx#:[id number] Oral 480 / 480 Output: Urine 1500 / 1500 Other: Date of Last Bowel Movement 05/28/18 - Constitutional no acute distress - Routine HEENT Exam Head: Present: normocephalic - Routine Neck Exam Present: supple - Routine Respiratory Exam Present: CTA bilaterally - Routine Cardiovascular Exam Present: S1, S2 - Routine Abdominal Exam Present: soft - Routine Extremities Exam Comments: no twin Results 05/31/18 04:27 05/31/18 04:27 Cardiac Enzymes 05/30/18 05/31/18 Range/Units 10:42 04:27 AST 98 H (15-37) U/L CK-MB (CK-2) 98.0 H (0.5-3.6) ng/mL Troponin I 2.49 H* (0.02-0.05) ng/mL Coagulation 05/30/18 05/30/18 Range/Units 10:42 16:18 PT 9.8 (9.8-11.6) sec APTT 25.3 27.0 (23.4-31.7) sec Lipids 05/30/18 05/31/18 Range/Units 10:42 04:27 Triglycerides 160 H 246 H (42-150) mg/dL Cholesterol 206 H 188 (120-200) mg/dL HDL Cholesterol 33.5 L 26.7 L (40.0-60.0) mg/dL Cholesterol/HDL Ratio 6.14 7.04 Ratio CBC 05/31/18 Range/Units 04:27 WBC 9.0 (4.0-11.0) th/mm3 RBC 4.50 (4.50-5.90) mil/mm3 Hgb 12.6 L (13.0-17.0) gm/dL Hct 38.0 L (39.0-51.0) % Plt Count 287 (150-450) th/mm3 Neut # (Auto) 5.9 (1.8-7.7) th/mm3 Lymph # (Auto) 2.1 (1.0-4.8) th/mm3 [place] # (Auto) 0.8 (0.0-0.9) th/mm3 Eos # (Auto) 0.3 (0.0-0.4) th/mm3 Baso # (Auto) 0.0 (0.0-0.2) th/mm3 Comprehensive Metabolic Panel 05/31/18 Range/Units 04:27 Sodium 141 (136-145) meq/L Potassium 3.9 (3.5-5.1) meq/L Chloride 108 H (98-107) meq/L Carbon Dioxide 22.6 (21.0-32.0) meq/L BUN 19 H (7-18) mg/dL Creatinine 1.05 (0.60-1.30) mg/dL Calcium 8.2 L (8.5-10.1) mg/dL AST 98 H (15-37) U/L ALT 34 (12-78) U/L Alkaline Phosphatase 123 H (45-117) U/L Total Protein 6.7 D (6.4-8.2) g/dL Albumin 3.3 L (3.4-5.0) g/dL Intake and Output 05/31/18 05/31/18 05/31/18 06:59 14:59 22:59 Intake Total 730 / 730 Output Total 1500 / 1500 Balance -770 / -770 Intake: IV 250 / 250 Aggrastat Inj 12,500 mcg In 250 250 / 250 ml @ 0 mls/hr .ROUTE .[facility] Rx#:[id number] Oral 480 / 480 Output: Urine 1500 / 1500 Other: Date of Last Bowel Movement 05/28/18 Weight 161 kg Assessment and Plan - Assessment (1) CAD (coronary artery disease) Code(s): I25.10 - Atherosclerotic heart disease of [place] coronary artery without angina pectoris Status: Acute (2) NSTEMI (non-ST elevated myocardial infarction) Code(s): I21.4 - Non-ST elevation (NSTEMI) myocardial infarction Status: Acute (3) Tobacco abuse Code(s): Z72.0 - Tobacco use Status: Acute (4) Tobacco abuse counseling Code(s): Z71.6 - Tobacco abuse counseling Status: Acute - Plan 1.) CAD - pod # 1 bms prox-mid rca, assymptomatic, continue aspirin, plavix, lipitor, coreg, lisinopril, patient strongly advised to stop smoking
[2018-06-01] MEDS: Morphine Inj 4 MG/ML Vial IV.PUSH PRN ×4 (00:38→08:13)
[2018-06-01 06:48] LABS: Hematocrit 39.3 % (39.0-51.0); Hemoglobin 12.9 gm/dL (13.0-17.0); Mean Corpuscular HGB Conc 32.7 % (32.0-36.0); Mean Corpuscular Hemoglobin 27.9 pg (27.0-34.0); Mean Corpuscular Volume 85.2 fL (80.0-100.0); Mean Platelet Volume 7.3 fL (7.0-11.0); Platelet Count 283 th/mm3 (150-450); Red Blood Count 4.61 mil/mm3 (4.50-5.90); Red Cell Distribution Width 18.7 % (11.6-17.2); White Blood Count 10.5 th/mm3 (4.0-11.0)
--- NOTE | 2018-06-01 08:07 | P.PNIM ---
Subjective Interval history: Follow-up [place] Physical Exam Vital signs: Vital Signs 05/31/18 09:00 05/31/18 10:00 05/31/18 10:05 Temperature Pulse Rate 80 88 Respiratory Rate 20 Blood Pressure Pulse Oximetry 97 05/31/18 11:00 05/31/18 12:00 05/31/18 13:00 Temperature Pulse Rate 76 80 92 H Respiratory Rate 20 20 Blood Pressure 127/67 Pulse Oximetry 99 05/31/18 13:40 05/31/18 14:00 05/31/18 14:15 Temperature 98.2 F Pulse Rate 91 H 88 Respiratory Rate 21 17 Blood Pressure 120/86 Pulse Oximetry 98 05/31/18 15:00 05/31/18 15:06 05/31/18 16:00 Temperature 98.2 F Pulse Rate 91 H 90 92 H Respiratory Rate 19 Blood Pressure 136/95 H Pulse Oximetry 98 05/31/18 17:00 05/31/18 18:00 05/31/18 19:00 Temperature Pulse Rate 92 H 93 H 90 Respiratory Rate Blood Pressure Pulse Oximetry 05/31/18 20:00 05/31/18 20:32 05/31/18 21:00 Temperature 98.1 F Pulse Rate 97 H 95 H 84 Respiratory Rate 20 Blood Pressure 138/99 H Pulse Oximetry 99 05/31/18 22:00 05/31/18 23:00 06/01/18 00:00 Temperature 98.2 F Pulse Rate 86 92 H 87 Respiratory Rate 20 Blood Pressure 141/84 H Pulse Oximetry 98 06/01/18 01:00 06/01/18 02:00 06/01/18 03:00 Temperature Pulse Rate 90 100 H 82 Respiratory Rate Blood Pressure Pulse Oximetry 06/01/18 03:19 06/01/18 04:00 06/01/18 05:00 Temperature 98.2 F Pulse Rate 92 H 82 82 Respiratory Rate 18 Blood Pressure 148/97 H Pulse Oximetry 97 06/01/18 06:00 Temperature Pulse Rate 82 Respiratory Rate Blood Pressure Pulse Oximetry Intake & Output 05/31/18 06/01/18 06/01/18 18:59 06:59 18:59 Intake Total 480 / 480 Output Total 1999 Balance -1520 / -1520 Weight 160 kg Intake: Oral 480 / 480 Output: Urine 1999 Other: Date of Last Bowel Movement 05/28/18 05/28/18 Narrative: General: NAD HEENT: NC, AT Lungs: CTAB Cardiac: RRR, no murmurs Abdomen: Soft, NT, ND Extremities: 1-2 + edema. Right groin site without hematoma, bandage in place Neuro: No gross deficits Results Labs CBC & Chem 7: 06/01/18 05:29 05/31/18 04:27 Procedures Procedures: Cardiac catheterization Assessment and Plan (1) CAD (coronary artery disease): Code(s): I25.10 - Atherosclerotic heart disease of [place] coronary artery without angina pectoris Status: Acute (2) NSTEMI (non-ST elevated myocardial infarction): Code(s): I21.4 - Non-ST elevation (NSTEMI) myocardial infarction Status: Acute (3) Tobacco abuse: Code(s): Z72.0 - Tobacco use Status: Acute (4) Tobacco abuse counseling: Code(s): Z71.6 - Tobacco abuse counseling Status: Acute Plan NSTEMI The patient presented with severe chest pain. EKG without acute ischemia. Troponin has been elevated up to 1.37. He reports having a previous catheterization where some disease was noted but not enough to warrant intervention. S/p heparin drip. Cardiology consult appreciated. S/p cath 05/30: Normal left ventricular systolic function at 55%; a 50% mid LAD lesion; Successful percutaneous coronary intervention bare metal stent of the proximal to mid right coronary artery. LDL elevated. A1c WNL. -Monitor on telemetry. -continue ASA, Plavix, Coreg, lisinopril and atorvastatin. -follow up with cardiology. GOLDSMITH Chest x-ray and CTA negative for acute process. The patient does have lower extremity edema. Echo with EF 50-55%. Likely s/t above. Satting well on room air. -management as above. -outpt follow-up. Hypertension Exacerbated by chest pain. Improved on current regimen. -Coreg and lisinopril. -Pain control. -Vasotec as needed. Morbid obesity The patient has not been very active secondary to dyspnea on exertion and chronic back pain. -Lifestyle modifications recommended. Tobacco abuse The pt continues to smoke. -cessation instruction. PPx: S/p heparin gtt Discharge Planning: D/c when cleared by cardiology Progress Note: Quality VTE Deep Vein Thrombosis/Pulmonary Embolism Present on Admission: No _ (1) CAD (coronary artery disease) Qualifiers: Coronary Disease-Associated Artery/Lesion type: [place] vs. transplanted heart: Associated angina:
[2018-06-01] MEDS: Senna/Docusate Sodium 8.6/50 MG Tablet PO SCH (08:14)
[2018-06-01] MEDS: Lisinopril 5 MG Tablet PO SCH (08:16)
--- NOTE | 2018-06-01 08:58 | P.PNCA ---
Subjective Interval history: denies chest pain or dyspnea Medications and Allergies Active Medications: Active Medications Acetaminophen (Tylenol) 650 mg PO Q4H PRN PRN Reason: Temp > 100.4, pain 1-2 Aspirin (Aspirin Chew) 162 mg PO DAILY [facility] Last Admin: 06/01/18 08:16 Dose: 162 mg Atorvastatin Calcium (Lipitor) 40 mg PO HS [facility] Last Admin: 05/31/18 20:11 Dose: 40 mg Carvedilol (Coreg) 3.125 mg PO BID [facility] Last Admin: 06/01/18 08:16 Dose: 3.125 mg Clopidogrel Bisulfate (Plavix) 75 mg PO DAILY [facility] Last Admin: 06/01/18 08:17 Dose: 75 mg Tirofiban/Sodium Chloride (Aggrastat Inj) 12,500 mcg in 250 mls @ 0 mls/hr IV.CONT .Q0M [facility]; Protocol Lactulose (Lactulose Liq) 30 ml PO DAILY PRN PRN Reason: SEVERE CONSITIPATION Lisinopril (Prinivil) 2.5 mg PO DAILY [facility] Last Admin: 06/01/18 08:16 Dose: 2.5 mg Morphine Sulfate (Morphine Inj) 4 mg IV.PUSH Q3H PRN PRN Reason: CHEST PAIN Last Admin: 06/01/18 08:13 Dose: 4 mg Oxycodone/Acetaminophen (Percocet 5/325 Mg) 1 tab PO Q6H PRN PRN Reason: pain 3-10 Last Admin: 06/01/18 08:16 Dose: 1 tab Senna/Docusate Sodium (Norma-Colace) 1 tab PO BID [facility] Last Admin: 06/01/18 08:14 Dose: 1 tab Sodium Chloride (Ns Flush) 2 ml IV.FLUSH PRN PRN PRN Reason: FLUSH AFTER USING IV ACCESS Sodium Chloride (Ns Flush) 2 ml IV.FLUSH BID [facility] Last Admin: 06/01/18 08:19 Dose: 2 ml Allergies Allergy/AdvReac Type Severity Reaction Status Date / Time ibuprofen Allergy Severe Gastrointestinal Verified 05/30/18 03:59 Upset ketorolac Allergy Severe VOMITING Verified 05/30/18 03:59 tramadol Allergy Severe Tachycardia Verified 05/30/18 03:59 NSAIDS Allergy Severe Gastrointestinal Uncoded 05/19/18 14:55 Upset Home Medications Medication Instructions Recorded Confirmed Type No Known Home Medications 05/19/18 05/30/18 History Physical Exam Vital signs: Vital Signs 05/31/18 09:00 05/31/18 10:00 05/31/18 10:05 Temperature Pulse Rate 80 88 Respiratory Rate 20 Blood Pressure Pulse Oximetry 97 05/31/18 11:00 05/31/18 12:00 05/31/18 13:00 Temperature Pulse Rate 76 80 92 H Respiratory Rate 20 20 Blood Pressure 127/67 Pulse Oximetry 99 05/31/18 13:40 05/31/18 14:00 05/31/18 14:15 Temperature 98.2 F Pulse Rate 91 H 88 Respiratory Rate 21 17 Blood Pressure 120/86 Pulse Oximetry 98 05/31/18 15:00 05/31/18 15:06 05/31/18 16:00 Temperature 98.2 F Pulse Rate 91 H 90 92 H Respiratory Rate 19 Blood Pressure 136/95 H Pulse Oximetry 98 05/31/18 17:00 05/31/18 18:00 05/31/18 19:00 Temperature Pulse Rate 92 H 93 H 90 Respiratory Rate Blood Pressure Pulse Oximetry 05/31/18 20:00 05/31/18 20:32 05/31/18 21:00 Temperature 98.1 F Pulse Rate 97 H 95 H 84 Respiratory Rate 20 Blood Pressure 138/99 H Pulse Oximetry 99 05/31/18 22:00 05/31/18 23:00 06/01/18 00:00 Temperature 98.2 F Pulse Rate 86 92 H 87 Respiratory Rate 20 Blood Pressure 141/84 H Pulse Oximetry 98 06/01/18 01:00 06/01/18 02:00 06/01/18 03:00 Temperature Pulse Rate 90 100 H 82 Respiratory Rate Blood Pressure Pulse Oximetry 06/01/18 03:19 06/01/18 04:00 06/01/18 05:00 Temperature 98.2 F Pulse Rate 92 H 82 82 Respiratory Rate 18 Blood Pressure 148/97 H Pulse Oximetry 97 06/01/18 06:00 06/01/18 08:00 Temperature Pulse Rate 82 Respiratory Rate Blood Pressure Pulse Oximetry 97 Intake & Output 05/31/18 06/01/18 06/01/18 18:59 06:59 18:59 Intake Total 480 / 480 Output Total 1999 Balance -1520 / -1520 Weight 160 kg Intake: Oral 480 / 480 Output: Urine 1999 Other: Date of Last Bowel Movement 05/28/18 05/28/18 - Constitutional no acute distress - Routine HEENT Exam Head: Present: normocephalic - Routine Neck Exam Present: supple - Routine Respiratory Exam Present: CTA bilaterally - Routine Cardiovascular Exam Present: S1, S2 - Routine Abdominal Exam Present: soft - Routine Extremities Exam Comments: no twin Results 06/01/18 05:29 05/31/18 04:27 Cardiac Enzymes 05/30/18 05/31/18 Range/Units 10:42 04:27 AST 98 H (15-37) U/L CK-MB (CK-2) 98.0 H (0.5-3.6) ng/mL Troponin I 2.49 H* (0.02-0.05) ng/mL Coagulation 05/30/18 05/30/18 Range/Units 10:42 16:18 PT 9.8 (9.8-11.6) sec APTT 25.3 27.0 (23.4-31.7) sec Lipids 05/30/18 05/31/18 Range/Units 10:42 04:27 Triglycerides 160 H 246 H (42-150) mg/dL Cholesterol 206 H 188 (120-200) mg/dL HDL Cholesterol 33.5 L 26.7 L (40.0-60.0) mg/dL Cholesterol/HDL Ratio 6.14 7.04 Ratio CBC 05/31/18 06/01/18 Range/Units 04:27 05:29 WBC 9.0 10.5 (4.0-11.0) th/mm3 RBC 4.50 4.61 (4.50-5.90) mil/mm3 Hgb 12.6 L 12.9 L (13.0-17.0) gm/dL Hct 38.0 L 39.3 (39.0-51.0) % Plt Count 287 283 (150-450) th/mm3 Neut # (Auto) 5.9 (1.8-7.7) th/mm3 Lymph # (Auto) 2.1 (1.0-4.8) th/mm3 [place] # (Auto) 0.8 (0.0-0.9) th/mm3 Eos # (Auto) 0.3 (0.0-0.4) th/mm3 Baso # (Auto) 0.0 (0.0-0.2) th/mm3 Comprehensive Metabolic Panel 05/31/18 Range/Units 04:27 Sodium 141 (136-145) meq/L Potassium 3.9 (3.5-5.1) meq/L Chloride 108 H (98-107) meq/L Carbon Dioxide 22.6 (21.0-32.0) meq/L BUN 19 H (7-18) mg/dL Creatinine 1.05 (0.60-1.30) mg/dL Calcium 8.2 L (8.5-10.1) mg/dL AST 98 H (15-37) U/L ALT 34 (12-78) U/L Alkaline Phosphatase 123 H (45-117) U/L Total Protein 6.7 D (6.4-8.2) g/dL Albumin 3.3 L (3.4-5.0) g/dL Intake and Output 05/31/18 06/01/18 06/01/18 22:59 06:59 14:59 Intake Total 480 / 480 Output Total 1999 Balance -1520 / -1520 Intake: Oral 480 / 480 Output: Urine 1999 Other: Date of Last Bowel Movement 05/28/18 05/28/18 Weight 160 kg Assessment and Plan - Assessment (1) CAD (coronary artery disease) Code(s): I25.10 - Atherosclerotic heart disease of [place] coronary artery without angina pectoris Status: Acute (2) NSTEMI (non-ST elevated myocardial infarction) Code(s): I21.4 - Non-ST elevation (NSTEMI) myocardial infarction Status: Acute (3) Tobacco abuse Code(s): Z72.0 - Tobacco use Status: Acute (4) Tobacco abuse counseling Code(s): Z71.6 - Tobacco abuse counseling Status: Acute - Plan 1.) CAD - pod # 2 bms prox-mid rca, assymptomatic, continue aspirin, plavix, lipitor, coreg, lisinopril, patient strongly advised to stop smoking
[2018-06-01 11:21] VITALS: BP 125/74; PULSE 80; RESP 20; TEMP 97.9; O2SAT 99
--- NOTE | 2018-06-01 12:43 | P.DS ---
DS: Providers Date of admission: 05/30/18 09:11 Primary care physician: UNKNOWN Consults: 05/30/18 10:23 Consult to Cardiology Routine Consulting Provider: Evin Lilly Does the patient have a Plate Setter who follows them?: No Preferred Dermatology Technician:: Compressor Battery Pellets Physician Reason for Consultation: Chest pain, elevated troponin Notified:: Physician Spoke with:: Dr Lilly Date Notified:: 05/30/18 Time Notified:: 10:26 Ordering Provider: GARRETT Brief History from admission: The patient is a 47-year-old male with past medical history of CAD and hypertension who is presenting to the hospital with chest pain. Patient says yesterday at noon he was sitting down when all of a sudden he developed severe chest pain in the center of his chest. He said that it felt like a giant knot in his chest. He said it comes and goes. There has been some radiation to his left arm. He has had accompanying shortness of breath. He says walking seems to make the pain worse. He reported a severity of 8 out of 10 at its worst. He has not had any sweating associated with the chest pain. He said he was on multiple blood pressure medications but has not been on them for a while because he recently moved here from [place]. He recalls being on metoprolol, losartan and amlodipine. He said he has been having leg swelling so he stopped the amlodipine. He says he has had shortness of breath with exertion for quite some time. He is not able to walk very far before he is fatigued. He states that he is unable to lie flat on his back and try to sleep on his stomach. He does wake up often from deep sleep feeling short of breath. He has had a sleep study but that was unsuccessful because he did not fall asleep in that environment. DS: Diagnosis Discharge Diagnosis (1) CAD (coronary artery disease): Status: Acute (2) NSTEMI (non-ST elevated myocardial infarction): Status: Acute (3) Tobacco abuse: Status: Acute (4) Tobacco abuse counseling: Status: Acute DS: Summary NSTEMI The patient presented with severe chest pain. EKG without acute ischemia. Troponin has been elevated up to 1.37. He reports having a previous catheterization where some disease was noted but not enough to warrant intervention. S/p heparin drip. Cardiology consult appreciated. S/p cath 05/30: Normal left ventricular systolic function at 55%; a 50% mid LAD lesion; Successful percutaneous coronary intervention bare metal stent of the proximal to mid right coronary artery. LDL elevated. A1c WNL. -Monitor on telemetry. -continue ASA, Plavix, Coreg, lisinopril and atorvastatin. -follow up with cardiology. Tobacco cessation GOLDSMITH Chest x-ray and CTA negative for acute process. The patient does have lower extremity edema. Echo with EF 50-55%. Likely s/t above. Satting well on room air. -management as above. -outpt follow-up. Hypertension Exacerbated by chest pain. Improved on current regimen. -Coreg and lisinopril. -Pain control. -Vasotec as needed. Morbid obesity The patient has not been very active secondary to dyspnea on exertion and chronic back pain. -Lifestyle modifications recommended. Tobacco abuse The pt continues to smoke. -cessation instruction. PPx: S/p heparin gtt Time spent discussing smoking cessation with patient: 3 to 10 minutes Time Spent with Patient Total time spent providing and/or coordinating discharge services: Greater than 30 minutes Quality: VTE Deep Vein Thrombosis/Pulmonary Embolism Present on Admission: No Exam Narrative Exam Narrative: General: NAD HEENT: NC, AT Lungs: CTAB Cardiac: RRR, no murmurs Abdomen: Soft, NT, ND Extremities: 1-2 + edema. Right groin site without hematoma, bandage in place Neuro: No gross deficits Results Procedures completed during hospitalization: Cardiac catheterization Labs on day of discharge: Labs from last 24 hours 06/01/18 05:29 WBC 10.5 RBC 4.61 Hgb 12.9 L Hct 39.3 MCV 85.2 MCH 27.9 MCHC 32.7 RDW 18.7 H Plt Count 283 MPV 7.3 Discharge Plan Discharge Disposition Patient Disposition: 01 Discharge Home Discharge Condition Condition: Stable Discharge Order Discharge Orders: Discharge Order (Routine); Ordered 06/01/18 Ordered By: Tae Ba Discharge Details Discharge Comment: dc when cleared by cards Physicians Team Primary Care Provider: UNKNOWN, Attending Provider: Tae Ba Other Providers: Evin Lilly Rxs /Orders / Referrals /Forms Prescriptions: New oxycodone-acetaminophen 5-325 mg Tablet 1 tab PO Q6H PRN (Reason: pain 3-10 ) Qty: 12 RF: 0 atorvastatin 40 mg Tablet 40 mg PO HS Qty: 30 RF: 0 clopidogrel [Plavix] 75 mg Tablet 75 mg PO DAILY Qty: 30 RF: 0 carvedilol [Coreg] 3.125 mg Tablet 3.125 mg PO BID Qty: 60 RF: 0 aspirin 81 mg Tablet,Chewable 162 mg PO DAILY Qty: 30 RF: 0 lisinopril 5 mg Tablet 2.5 mg PO DAILY Qty: 30 RF: 0 Referrals: Evin Lilly MD [Physician] - See Instructions (Follow-up in 1-2-week) UNKNOWN, [Primary Care Provider] - See Instructions (Keep appointment you have scheduled on .) Discharge Instructions Patient Printed Instructions: Heart Attack (DC), How to Stop Smoking (DC), Heart Healthy Diet (DC), Heart Catheterization (DC) Post Discharge Care Plan Care Plan Goals: Your Health Problems: Goals to Promote Your Health: * To prevent worsening of your condition * To maintain your health at the optimal level Directions to Meet Your Goals: * Take your medications as prescribed * Follow your dietary instruction * Follow activity as directed * Keep your appointments as scheduled * Take your immunizations and boosters as scheduled * If your symptoms worsen call your PCP * If no PCP go to Urgent Care or Emergency Room Smoking is dangerous to your health. Avoid second hand smoke. You may reach the 24-hour crisis hotline for domestic abuse at . Status ED Status: Admitted Patient Discharge Information Discharge Date/Time: 06/01/18 11:36
== END 2018-06-01 11:36 | disposition home or self-care (01) | DRG 249 ==
LOC: NEDDLT 03:44 → HCPC 09:11 → HCIN 05-31 13:30
PROVIDERS: ADMIT Internal Medicine; ATTEND Internal Medicine
DX: M54.9 Dorsalgia, unspecified; I25.10 Atherosclerotic heart disease of native coronary artery without angina pectoris; E78.5 Hyperlipidemia, unspecified; Z68.43 Body mass index [BMI] 50.0-59.9, adult; F17.210 Nicotine dependence, cigarettes, uncomplicated; Z82.49 Family history of ischemic heart disease and other diseases of the circulatory system; E66.01 Morbid (severe) obesity due to excess calories; M10.9 Gout, unspecified; G89.29 Other chronic pain; I10 Essential (primary) hypertension; I21.4 Non-ST elevation (NSTEMI) myocardial infarction
CPT/HCPCS: 71010; 71045; 71275; 80053; 80061; 82550; 82552; 83036; 83520; 83735; 83880; 84484; 85025; 85027; 85379; 85610; 85730; 90774; 90775; 90776; 90784; 92928; 93005; 93306; 93458; 94640; 94665; 96374; 96375; 96376; 99291; C1725; C1760; C1769; C1876; C1887; C1893; C8952; G0269; J1644; J2250; J2270; J3010; J3246; Q9967